=== PATIENT | female | born 1960 | race Asian ===

== ENCOUNTER 2025-01-18 11:01 | Day surgery (SDC) | payer OTHER, BC ==
[2025-01-14 09:51] VITALS: BMI 29.1
[2025-01-18] MEDS ORDERED: PROPOFOL 20 ML ONE (12:39)
[2025-01-18 13:15] VITALS: RESP 18; TEMP 98
[2025-01-18 13:16] VITALS: BP 121/66; PULSE 57
== END 2025-01-18 13:37 | disposition home or self-care (01) ==
LOC: FASU-ENDO 11:01
PROVIDERS: ATTEND Internal Medicine Gastroenterology
PROC: 0DBM8ZX Excision of Descending Colon, Via Natural or Artificial Opening Endoscopic, Diagnostic (ICD-10-PCS; principal; 2025-01-18 12:48)
DX: Z12.11 Encounter for screening for malignant neoplasm of colon (principal); D12.4 Benign neoplasm of descending colon
CPT/HCPCS: 88305-TC